=== PATIENT | male | born 1985 | race American Indian/Alaskan Native ===

== ENCOUNTER 2016-12-17 09:04 | Emergency (ER) | payer MEDICAID, OTHER ==
[2016-12-17 09:20] VITALS: TEMP 97.8; O2SAT 98
--- NOTE | 2016-12-17 09:42 | C.PDOC ---
History Of Present Illness 31 y/o M p/w L ankle pain x 3 weeks. States he suffered an inversion injury playing basketball but it does not seem to be getting better. He has been ambulating on it. He also complains of daily headaches for 2 to 3 months and states he never had constant headaches like this in the past. He denies fever, stiff neck, vision change, numbness, weakness. Time Seen by Provider: 12/17/16 09:15 Chief Complaint (Nursing): Lower Extremity Problem/Injury Past Medical History Vital Signs: Last Vital Signs Temp 97.8 F 12/17/16 09:10 Pulse 78 12/17/16 09:10 Resp 18 12/17/16 09:10 BP 148/98 H 12/17/16 09:10 Pulse Ox 98 12/17/16 09:42 Family History: States: Unknown Family Hx - Social History Hx Tobacco Use: No Hx Alcohol Use: No Hx Substance Use: No - Immunization History Hx Tetanus Toxoid Vaccination: Yes Hx Influenza Vaccination: No Hx Pneumococcal Vaccination: No Review Of Systems Except As Marked, All Systems Reviewed And Found Negative. Constitutional: Negative for: Fever Cardiovascular: Negative for: Chest Pain Physical Exam - Physical Exam Appears: No Acute Distress Skin: No Ecchymosis Head: Atraumatic, Normacephalic Neck: Normal ROM, Supple Respiratory: No Accessory Muscle Use Extremity: Normal ROM, Tenderness (over ATFL), No Deformity, No Swelling Pulses: Left Radial: Normal, Right Radial: Normal Neurological/Psych: Normal Speech, Normal Cognition Gait: Steady ED Course And Treatment O2 Sat by Pulse Oximetry: 98 Medical Decision Making Medical Decision Making: Patient refused toradol. Accession No. : [id number] Patient Name / ID : JOSE PETERSON / [id number] Exam Date : 12/17/2016 10:23:19 ( Approved ) Study Comment : Sex / Age : M / 31Y Creator : Zenobia Siddiqi MD Dictator : Zenobia Siddiqi MD [employer] Developer : House Mover : Zenobia Siddiqi MD Approver2 : Report Date : 12/17/2016 11:14:05 My Comment : PROCEDURE: CT HEAD WITHOUT CONTRAST. HISTORY: new headaches, constant COMPARISON: None available TECHNIQUE: Axial computed tomography images were obtained through the head/brain without intravenous contrast. Radiation dose: Total exam DLP = 1194.05 mGy-cm. This CT exam was performed using one or more of the following dose reduction techniques: Automated exposure control, adjustment of the mA and/or kV according to patient size, and/or use of iterative reconstruction technique. FINDINGS: HEMORRHAGE: No intracranial hemorrhage. BRAIN: No mass effect or edema. No atrophy or chronic microvascular ischemic changes. VENTRICLES: No hydrocephalus. CALVARIUM: Unremarkable. PARANASAL SINUSES: Unremarkable as visualized. No significant inflammatory changes. MASTOID AIR CELLS: Unremarkable as visualized. No inflammatory changes. OTHER FINDINGS: None. IMPRESSION: No acute intracranial pathology identified. Accession No. : [id number] Patient Name / ID : JOSE PETERSON / [id number] Exam Date : 12/17/2016 09:44:12 ( Approved ) Study Comment : Sex / Age : M / 31Y Creator : Zenobia Siddiqi MD Dictator : Zenobia Siddiqi MD [employer] Developer : House Mover : Zenobia Siddiqi MD Approver2 : Report Date : 12/17/2016 10:11:07 My Comment : PROCEDURE: Left Ankle Radiographs. HISTORY: L ankle pain COMPARISON: None available. FINDINGS: BONES: No acute displaced fracture. JOINTS: No dislocation. SOFT TISSUES: Mild soft tissue swelling. No evidence of radiopaque foreign body. OTHER FINDINGS: None. IMPRESSION: Mild soft tissue swelling. No acute displaced fracture, dislocation, or significant joint effusion identified. If symptoms persist or if there is clinical concern, x-ray follow-up in 7-10 days should be considered. Disposition - Disposition Disposition: HOME/ ROUTINE Disposition Time: 11:18 Condition: STABLE Prescriptions: Ibuprofen [Motrin] 600 mg PO Q6 #25 tab Instructions: Ankle Sprain (ED), Acute Headache (ED) Forms: Work Excuse - Clinical Impression Clinical Impression: Headache, Left ankle sprain
--- NOTE | 2016-12-17 10:12 | RAD ---
PROCEDURE: Left Ankle Radiographs. HISTORY: L ankle pain COMPARISON: None available. FINDINGS: BONES: No acute displaced fracture. JOINTS: No dislocation. SOFT TISSUES: Mild soft tissue swelling. No evidence of radiopaque foreign body. OTHER FINDINGS: None. IMPRESSION: Mild soft tissue swelling. No acute displaced fracture, dislocation, or significant joint effusion identified. If symptoms persist or if there is clinical concern, x-ray follow-up in 7-10 days should be considered.
--- NOTE | 2016-12-17 11:15 | CT ---
PROCEDURE: CT HEAD WITHOUT CONTRAST. HISTORY: new headaches, constant COMPARISON: None available TECHNIQUE: Axial computed tomography images were obtained through the head/brain without intravenous contrast. Radiation dose: Total exam DLP = 1194.05 mGy-cm. This CT exam was performed using one or more of the following dose reduction techniques: Automated exposure control, adjustment of the mA and/or kV according to patient size, and/or use of iterative reconstruction technique. FINDINGS: HEMORRHAGE: No intracranial hemorrhage. BRAIN: No mass effect or edema. No atrophy or chronic microvascular ischemic changes. VENTRICLES: No hydrocephalus. CALVARIUM: Unremarkable. PARANASAL SINUSES: Unremarkable as visualized. No significant inflammatory changes. MASTOID AIR CELLS: Unremarkable as visualized. No inflammatory changes. OTHER FINDINGS: None. IMPRESSION: No acute intracranial pathology identified.
[2016-12-17 11:23] VITALS: BP 132/78; PULSE 81; RESP 16
== END 2016-12-17 11:23 | disposition home or self-care (01) ==
LOC: C.ER 09:04
DX: S93.402A Sprain of unspecified ligament of left ankle, initial encounter (principal); X58.XXXA Exposure to other specified factors, initial encounter; Y93.67 Activity, basketball; Y92.9 Unspecified place or not applicable; R51 Headache